=== PATIENT | female | born 1950 | race Caucasian/White ===

== ENCOUNTER → 2021-01-14 | Outpatient (REF) | payer MEDICARE, OTHER | LOC: M SFHCWAGY 17:09 | PROVIDERS: ATTEND Obstetrics & Gynecology | DX: O72.1 Other immediate postpartum hemorrhage (principal); R87.618 Other abnormal cytological findings on specimens from cervix uteri; N95.0 Postmenopausal bleeding | CPT/HCPCS: 58100; 87624; 88305; G0123; G0463 ==